=== PATIENT | female | born 1985 | race Hispanic/Latino ===

== ENCOUNTER 2018-04-16 17:20 | Emergency (ER) | payer OTHER, SELFPAY ==
[2018-04-16 17:56] LABS: Urine Blood 3+ (NEG); Urine Glucose NEGATIVE (NEG); Urine Protein NEGATIVE (NEG)
[2018-04-16 18:20] LABS: Absolute Lymphocytes (CBC) 2.3 K/uL (0.7-4.9); Absolute Monocytes 0.6 K/uL (0.1-1.3); Absolute Neutrophil 8.1 K/uL (1.8-8.0); Basophils % 0.4 % (0-1.3); Eosinophils % 1.4 % (0-4.4); Hematocrit 40.7 % (36.0-45.0); Lymphocytes % 20.7 % (15.3-44.8); MPV 10.2 fL (7.6-11.3); RBC Red Blood Cell Count 4.36 M/uL (3.86-4.86)
[2018-04-16 18:59] LABS: BUN Blood Urea Nitrogen 6 mg/dL (7-18); Bicarbonate 24 mmol/L (21-32); Glucose Level 91 mg/dL (74-106); HCG, Quantitative 169207 mIU/mL (1-3); Potassium 3.6 mmol/L (3.5-5.1); Sodium Level 139 mmol/L (136-145)
--- NOTE | 2018-04-16 19:47 | EDPHYS ---
Physician Documentation [facility] Name: Maria C Wallace Age: 33 yrs Sex: Female : 1985 Arrival Date: 04/16/2018 Time: 17:24 Bed 18 Private MD: ED Physician Jose Alejandro Romeo HPI: 04/16 19:44 This 33 yrs old Female presents to ER via Ambulatory with complaints of jr8 Vaginal Bleeding, + Preg <12wks. 19:44 The patient presents to the emergency department with vaginal bleeding, that is light. jr8 The estimated gestational age is 11 weeks. course: care: private OB physician. Previous pregnancies: in previous pregnancies patient has had vaginal delivery, no complications. Associated signs and symptoms: The patient has no apparent associated signs or symptoms. The patient has not experienced similar symptoms in the past. The patient has not recently seen a physician. 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 - Social history:: Smoking status: Patient/guardian denies using tobacco. - Ebola Screening: : Patient negative for fever greater than or equal to 101.5 degrees Fahrenheit, and additional compatible Ebola Virus Disease symptoms Patient denies exposure to infectious person Patient denies travel to an Ebola-affected area in the 21 days before illness onset No symptoms or risks identified at this time. ROS: 19:44 Eyes: Negative for injury, pain, redness, and discharge, ENT: Negative for injury, jr8 pain, and discharge, Neck: Negative for injury, pain, and swelling, Cardiovascular: Negative for chest pain, palpitations, and edema, Respiratory: Negative for shortness of breath, cough, wheezing, and pleuritic chest pain, Abdomen/GI: Negative for abdominal pain, nausea, vomiting, diarrhea, and constipation, Back: Negative for injury and pain, MS/Extremity: Negative for injury and deformity, Skin: Negative for injury, rash, and discoloration, Neuro: Negative for headache, weakness, numbness, tingling, and seizure. 19:44 : Positive for vaginal bleeding. Exam: 19:44 Eyes: Pupils equal round and reactive to light, extra-ocular motions intact. Lids and jr8 lashes normal. Conjunctiva and sclera are non-icteric and not injected. Cornea within normal limits. Periorbital areas with no swelling, redness, or edema. ENT: Nares patent. No nasal discharge, no septal abnormalities noted. Tympanic membranes are normal and external auditory canals are clear. Oropharynx with no redness, swelling, or masses, exudates, or evidence of obstruction, uvula midline. Mucous membranes moist. Neck: Trachea midline, no thyromegaly or masses palpated, and no cervical lymphadenopathy. Supple, full range of motion without nuchal rigidity, or vertebral point tenderness. No Meningismus. Cardiovascular: Regular rate and rhythm with a normal S1 and S2. No gallops, murmurs, or rubs. Normal PMI, no JVD. No pulse deficits. Respiratory: Lungs have equal breath sounds bilaterally, clear to auscultation and percussion. No rales, rhonchi or wheezes noted. No increased work of breathing, no retractions or nasal flaring. Abdomen/GI: Soft, non-tender, with normal bowel sounds. No distension or tympany. No guarding or rebound. No evidence of tenderness throughout. Back: No spinal tenderness. No costovertebral tenderness. Full range of motion. Skin: Warm, dry with normal turgor. Normal color with no rashes, no lesions, and no evidence of cellulitis. MS/ Extremity: Pulses equal, no cyanosis. Neurovascular intact. Full, normal range of motion. Neuro: Awake and alert, GCS 15, oriented to person, place, time, and situation. Cranial nerves II-XII grossly intact. Motor strength 5/5 in all extremities. Sensory grossly intact. Cerebellar exam normal. Normal gait. Vital Signs: 17:30 BP 125 / 80; Pulse 84; Resp 20; Temp 98.7; Pulse Ox 100% on R/A; Weight 68.04 kg; aj Height 5 ft. 0 in. (152.40 cm); 18:20 BP 124 / 73; Pulse 72; Resp 16; Pulse Ox 100% on R/A; Pain 0/10; em 19:21 BP 124 / 70; Pulse 71; Resp 17 S; Pulse Ox 100% on R/A; jd3 17:30 Body Mass Index 29.29 (68.04 kg, 152.40 cm) aj MDM: 17:50 Patient medically screened. [facility] 19:44 Data reviewed: vital signs, nurses notes, lab test result(s), radiologic studies, [facility] ultrasound, and as a result, I will discharge patient. Data interpreted: Pulse oximetry: on room air is 100 %. Interpretation: normal. Counseling: I had a detailed discussion with the patient and/or guardian regarding: the historical points, exam findings, and any diagnostic results supporting the discharge/admit diagnosis, lab results, radiology results, the need for outpatient follow up, an OB/Gyne specialist, to return to the emergency department if symptoms worsen or persist or if there are any questions or concerns that arise at home. 04/16 17:50 Order name: Quantitative Hcg [facility] 04/16 17:50 Order name: Abo/rh Typing [facility] 04/16 17:50 Order name: Basic Metabolic Panel [facility] 04/16 17:50 Order name: CBC with Diff [facility] 04/16 17:53 Order name: Urine Dipstick--Ancillary (enter results) nc 04/16 17:53 Order name: Urine --Ancillary (enter results) nc 04/16 17:50 Order name: Urine Test (obtain specimen); Complete Time: 18:15 [facility] 04/16 17:50 Order name: US Transvaginal Ob [facility] 04/16 17:57 Order name: Urine --Ancillary; Complete Time: 18:23 [facility] 04/16 17:57 Order name: Urine Dipstick-Ancillary; Complete Time: 18:23 [facility] 04/16 18:49 Order name: ABO/RH typing; Complete Time: 19:35 [facility] 04/16 18:53 Order name: CBC with Automated Diff; Complete Time: 19:35 [facility] 04/16 18:59 Order name: Basic Metabolic Panel; Complete Time: 19:35 [facility] 04/16 18:59 Order name: HCG, Quantitative; Complete Time: 19:35 [facility] 04/16 17:50 Order name: IV Saline Lock; Complete Time: 18:15 [facility] 04/16 17:50 Order name: Labs collected and sent; Complete Time: 18:15 jr8 04/16 17:50 Order name: NPO; Complete Time: 18:15 jr8 04/16 17:50 Order name: Urine Dipstick-Ancillary (obtain specimen); Complete Time: 18:15 Administered Medications: No medications were administered Point of Care Testing: Urine : 19:59 hCG Reading: Positive; jd3 Disposition: 04/16/18 19:46 Discharged to Home. Impression: Threatened . - Condition is Stable. - Discharge Instructions: Threatened Miscarriage, Vaginal Bleeding During , First Trimester, Vaginal Bleeding During , Second Trimester, Pelvic Rest. - Medication Reconciliation Form, Thank You Letter, Antibiotic Education, Prescription Opioid Use form. - Follow up: Private Physician; When: 2 - 3 days; Reason: Recheck today's complaints, Continuance of care, Re-evaluation by your physician. - Problem is new. - Symptoms have improved. Addendum: 04/18/2018 03:39 Co-signature as Attending Physician, Jose Alejandro Romeo MD I agree with the assessment and t w4 plan of care. Signatures: Dispatcher [employer] EDMS Nanci Stallings RN RN aj Roszak, Josh, PA PA jr8 Alexandre Tom RN RN jd3 Wadley, Terrence, MD MD tw4 Corrections: (The following items were deleted from the chart) 04/16 19:59 19:46 04/16/2018 19:46 Discharged to Home. Impression: Threatened . Condition jd3 is Stable. Forms are Medication Reconciliation Form, Thank You Letter, Antibiotic Education, Prescription Opioid Use. Follow up: Private Physician; When: 2 - 3 days; Reason: Recheck today's complaints, Continuance of care, Re-evaluation by your physician. Problem is new. Symptoms have improved. jr8
--- NOTE | 2018-04-16 19:47 | ER ---
Nurse's Notes [facility] Name: Maria C Wallace Age: 33 yrs Sex: Female : 1985 Arrival Date: 04/16/2018 Time: 17:24 Bed 18 Private MD: Diagnosis: Threatened Presentation: 04/16 17:28 Presenting complaint: Patient states: Vaginal bleeding for [address] Canas and aj put on pelvic rest on . Transition of care: patient was not received from another setting of care. Onset of symptoms was April 09, 2018. Risk Assessment: Do you want to hurt yourself or someone else? Patient reports no desire to harm self or others. Initial Sepsis Screen: Does the patient meet any 2 criteria? No. Patient's initial sepsis screen is negative. Does the patient have a suspected source of infection? No. Patient's initial sepsis screen is negative. Care prior to arrival: None. 17:28 Method Of Arrival: Ambulatory aj 17:28 Acuity: LIGIA 3 aj Triage Assessment: 17:30 General: Appears in no apparent distress. comfortable, Behavior is calm, cooperative, aj appropriate for age. Pain: Denies pain. Neuro: Level of Consciousness is awake, alert, obeys commands, Oriented to person, place, time, situation, Appropriate for age. Respiratory: Airway is patent Respiratory effort is even, unlabored, Respiratory pattern is regular, symmetrical. : Reports vaginal bleeding that is light flow. Derm: Skin is intact, is healthy with good turgor, Skin is pink, warm \T\ dry. normal. 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 - Social history:: Smoking status: Patient/guardian denies using tobacco. - Ebola Screening: : Patient negative for fever greater than or equal to 101.5 degrees Fahrenheit, and additional compatible Ebola Virus Disease symptoms Patient denies exposure to infectious person Patient denies travel to an Ebola-affected area in the 21 days before illness onset No symptoms or risks identified at this time. Screenin:45 Abuse screen: Denies threats or abuse. Nutritional screening: No deficits noted. em Tuberculosis screening: No symptoms or risk factors identified. Fall Risk None identified. Assessment: 17:45 General: Appears in no apparent distress. comfortable, Behavior is calm, cooperative, em Denies fever. Pain: Denies pain. Neuro: Level of Consciousness is awake, alert, obeys commands, Oriented to person, place, time, situation. Cardiovascular: Patient's skin is warm and dry. Respiratory: Airway is patent Respiratory effort is even, unlabored, Respiratory pattern is regular, symmetrical. GI: Abdomen is flat, Reports nausea, Patient currently denies cramping, vomiting. : Urine is clear, Reports vaginal bleeding that is with clots, moderate flow, since Tuesday. Derm: Skin is intact, Skin is pink, warm \T\ dry. Musculoskeletal: Range of motion: intact in all extremities. 17:45 Reassessment: I agree with assessment completed by Russell Sr LVN . aa5 19:21 Reassessment: Patient appears in no apparent distress at this time. No changes from jd3 previously documented assessment. Patient and/or family updated on plan of care and expected duration. Pain level reassessed. Patient is alert, oriented x 3, equal unlabored respirations, skin warm/dry/pink. 19:59 Obstetrical Assessment: General assessment: awake and alert, skin warm and dry, jd3 respirations even and unlabored. Vital Signs: 17:30 BP 125 / 80; Pulse 84; Resp 20; Temp 98.7; Pulse Ox 100% on R/A; Weight 68.04 kg; aj Height 5 ft. 0 in. (152.40 cm); 18:20 BP 124 / 73; Pulse 72; Resp 16; Pulse Ox 100% on R/A; Pain 0/10; em 19:21 BP 124 / 70; Pulse 71; Resp 17 S; Pulse Ox 100% on R/A; jd3 17:30 Body Mass Index 29.29 (68.04 kg, 152.40 cm) aj Vitals: 19:58 Heart Tones no order for heart tones. jd3 ED Course: 17:24 Patient arrived in ED. mr 17:30 Triage completed. aj 17:30 Arm band placed on right wrist. Patient placed in an exam room. aj 17:45 Patient has correct armband on for positive identification. Placed in gown. Bed in low em position. Call light in reach. Side rails up X2. Adult w/ patient. Pulse ox on. NIBP on. 17:50 Kyle Franks PA is PHCP. jr8 17:50 Jose Alejandro Romeo MD is Attending Physician. jr8 17:50 Urine collected: clean catch specimen, clear. em 18:00 Russell Sr LVN is Primary Nurse. em 18:11 Initial lab(s) drawn, by me, sent to lab. Inserted saline lock: 22 gauge in right em antecubital area, using aseptic technique. Blood collected. 18:36 Radiology exam delayed due to test not completed at this time. hcg. sg3 19:26 Ultrasound completed. Patient tolerated well. Notified COTTON EXPERT/EVANGELIST britton. sg3 19:30 Primary Nurse role handed off by Russell Sr LVN jd3 19:30 Alexandre Tom RN is Primary Nurse. jd3 19:58 No provider procedures requiring assistance completed. IV discontinued, intact, jd3 bleeding controlled, No redness/swelling at site. Pressure dressing applied. Administered Medications: No medications were administered Point of Care Testing: Urine : 19:59 hCG Reading: Positive; jd3 Outcome: 19:46 Discharge ordered by . jr8 19:58 Discharged to home ambulatory, with family. jd3 19:58 Condition: stable 19:58 Discharge instructions given to patient, family, Instructed on discharge instructions, follow up and referral plans. Demonstrated understanding of instructions, follow-up care. 19:59 Patient left the ED. jd3 Signatures: Nanci Stallings RN RN aj Igor Farida mr SrRussell LVN LVN em Lena Melgar RN Kyle Mustafa PA PA jr8 Davies, Jonathon, RN RN jd3 Godinez, Sarah sg3
[2018-04-16 20:07] VITALS: TEMP 98.7; O2SAT 100
[2018-04-16 20:10] VITALS: BP 124/70
--- NOTE | 2018-04-16 20:24 | RAD REPORT ---
EXAM DESCRIPTION: US - Transvaginal OB - 04/16/2018 7:25 pm CLINICAL HISTORY: , vaginal bleeding Preliminary findings provided at the time of the study. COMPARISON: None. FINDINGS: Single intrauterine gestation identified. Gestational sac is normal in configuration. Yolk sac is seen. pole is identified. Heart rate is 168-171 BPM. A 3 x 2 x 1.6 centimeter subchorio mary hemorrhage is present along the inferior margin of the gestational sac. A 3.2 centimeter thin-wal led anechoic right ovarian cyst is identified. A 4.8 centimeter left ovarian cyst is identified also thin walled and anechoic. Doppler evaluation shows normal blood flow within the ovarian stroma. [place] -rump length corresponds to 11 weeks 3 day age. Calculated TAMMY is 11/02/2018. IMPRESSION: Single 11 week 3 day IUP with due date of 11/02/2018. Heart rate is normal. No gross anatomic finding at this early age. Approximately 3 cm subchorionic hemorrhage along the inferior aspect of the gestational sac.
== END 2018-04-16 19:59 | disposition home or self-care (01) ==
LOC: ER 17:20
DX: O20.0 Threatened abortion (principal); Z3A.11 11 weeks gestation of pregnancy
CPT/HCPCS: 36415; 76817; 80048; 81003; 81025; 84702; 85025; 86900; 86901

== ENCOUNTER 2018-10-25 00:35 | Inpatient (IN) | payer OTHER ==
[2018-10-25] MEDS ORDERED: Ringers Lactate 1,000 ML IV PRN (04:46)
[2018-10-25] MEDS ORDERED: NA CIT/CITRIC AC 30 ML ORAL UDC PO ONE (04:53)
[2018-10-25] MEDS ORDERED: Ringers Lactate 1,000 ML IV SCH (05:00)
[2018-10-25 05:17] LABS: Urine Appearance CLEAR; Urine Bilirubin NEGATIVE (NEG); Urine Blood NEGATIVE (NEG); Urine Color YELLOW; Urine Glucose NEGATIVE (NEG); Urine Protein NEGATIVE (NEG); Urine Urobilinogen 0.2 mg/dL (0.2-1.0); Urine pH 7.5 (5.0-7.0)
[2018-10-25 05:18] LABS: Urine Microscopic Reflex ORDER UMIC
[2018-10-25] MEDS ORDERED: METOCLOPRAMIDE 10 MG/2mL INJ IV ONE (05:30)
[2018-10-25] MEDS ORDERED: FAMOTIDINE 20 MG/2 ML VIAL IV ONE (05:30)
[2018-10-25 05:31] LABS: Urine Bacteria 20-50 /HPF (<20); Urine Culture Reflex Order REFLEXED; Urine RBC <5 /HPF (NONE SEEN)
[2018-10-25 05:42] LABS: Absolute Lymphocytes (CBC) 1.4 K/uL (0.7-4.9); Basophils % 0.2 % (0-1.3); Hematocrit 41.1 % (36.0-45.0); Lymphocytes % 14.8 % (15.3-44.8); MPV 11.6 fL (7.6-11.3); RBC Red Blood Cell Count 4.27 M/uL (3.86-4.86)
[2018-10-25] MEDS ORDERED: CEFAZOLIN 2 GM in NA CHLORIDE 0.9% 100 ML IVPB SCH (06:00)
[2018-10-25 06:28] VITALS: BMI 38.0
[2018-10-25] MEDS ORDERED: MORPHINE SULFATE/PF 1 MG/ML (10 ML AMP) ONE (07:16)
[2018-10-25] MEDS ORDERED: OXYTOCIN 10 UNIT/ML ML IV ONE ×3 (07:17→08:25)
[2018-10-25 07:35] LABS: Blood Morphology Comment NOT SEEN (NOT SEEN); Platelet Estimate ADEQ
[2018-10-25] MEDS ORDERED: EPHEDRINE SULF 50 MG/ML VIAL ONE (08:03)
--- NOTE | 2018-10-25 08:18 | PREOPHP ---
Date of Admission: 10/25/2018 History Of Present Illness: A 32-year-old 3, para 2, 2 previous C-sections, for repeat dee nelda section. Infection, blood loss, anesthetic complications, injury to bladder, bowel, ureter, post operative complications, clots in legs, and pneumonia discussed. Patient knows fully well this does not constitute all the possible problems that could occur during or following surgery and knows that with each surgery the risk of complications is higher. Patient had a cyst on her left ovary earlier in the . We will see if that is still is there or not. Family History: Basically showing hypertension in one of the grandparents and diabetes in another gr andparent, but otherwise clear. Allergies: SHE HAS NO ALLERGIES. Medications: She has been taking vitamins prior to admission. Social History: Does not smoke. Physical Examination: HEENT: Clear. Pupils equal, round, reactive to light and accommodation. Conjunctivae well perfused . No oral, lingual, or buccal lesions. Chest and Lungs: Clear. Heart: Without murmurs, thrills, heaves, or rubs. Breasts: Without masses on previous visit. ABDOMEN: Term size. Baby is vertex. EXTREMITIES: Clear without edema, cyanosis, or clubbing. Plan: We will proceed with repeat section tomorrow morning. She knows not to eat or drink after midnight. Her niece will be there with her. The niece speaks Thai quite well. SUE/SHANICE Voice ID: [id number]
[2018-10-25] MEDS ORDERED: Oxycodone HCl/Acetaminophen 1 TAB TAB PO PRN (08:31)
[2018-10-25] MEDS ORDERED: BISACODYL 10 MG RECTAL SUPP RECT PRN (08:31)
[2018-10-25] MEDS ORDERED: IBUPROFEN 200 MG TAB PO PRN (08:31)
[2018-10-25] MEDS ORDERED: DIPHENHYDRAMINE 25 MG TAB/CAP PO PRN (08:31)
[2018-10-25] MEDS ORDERED: ONDANSETRON 4 MG/2 ML VIAL IV PRN (08:31)
[2018-10-25] MEDS ORDERED: ONDANSETRON 4 MG (ODT) TAB PO PRN (08:31)
[2018-10-25] MEDS ORDERED: ACETAMINOPHEN 500 MG TAB PO PRN ×2 (08:31)
[2018-10-25] MEDS ORDERED: CEFAZOLIN/SWI 1gm 1 GM/10 ML SYR IV SCH (09:00)
[2018-10-25] MEDS ORDERED: D5LR 1,000 ML with OXYTOCIN 20 UNIT IV SCH ×2 (09:00)
[2018-10-25] MEDS ORDERED: OXYTOCIN/LR 20 UNIT/1,000 ML BAG IV SCH (09:00)
[2018-10-25] MEDS: KETOROLAC 30 MG/ML INJ IV PRN ×2 (13:30→22:30)
[2018-10-25] MEDS ORDERED: CEFAZOLIN/SWI 2gm 2 GM/20 ML SYR IVP SCH (15:15)
[2018-10-25 19:49] LABS: RPR (Rapid Plasma Reagin) NON-REACT (NON-REACT)
--- NOTE | 2018-10-25 19:53 | OP ---
Surgeon: Philippe Canas MD Anesthesiologist: Dr. Randolph. Indications: A 33-year-old, 3, para 2, previous C-sections, for a repeat section. Also known to have a left ovarian cyst. Full preoperative counseling concerning procedure including infection; blood loss; anesthetic complications; injury to bladder, bowel, or ureter; postoperative c omplications; clots in legs; and pneumonia. Patient knows fully well this does not constitute all th e problems that could occur during or following surgery and knows that with each surgery the risk of complications is higher. 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 Description Of Procedure: After spinal block anesthesia was performed, patient was prepped and drape d and a time-out was performed. She had been given 2 g of Ancef prophylactically. A Pfannenstiel in cision was created over the previous incision site. The incision was carried to fascia. There was n oted to be heavy eschar tissue, very thick from previous cesareans. Anterior fascial plane as well a s posterior fascial plane were both developed with blunt and sharp dissection. Underlying rectus mus roma was . A peritoneal defect was encountered and entered. Noted to have scar tissue on th e right lower segment of the uterus from peritoneal adhesions. This was removed. Inspection of the left ovary showed a cyst that was drained of mucus-looking material and a biopsy was performed, melba riley tied on the base of the biopsy specimen and sent to Pathology. The cervical os was dilated with ri ng clamp after the baby had been delivered, a 7-pound 1-ounce female. Vacuum suction needed to get t he baby out, but easy delivery. Apgars 9 and 9. Placenta removed manually. Uterus cleared of clot and blood and exteriorized. Uterus closed with a running locked stitch of 1 chromic followed by 5 fi [id number] stitches in the left angle for complete hemostasis. At this time, small irritated area s on the front part of the uterus from the peritoneal attachments were fulgurated. Gutters cleared o f clot and blood. Uterus was replaced in the peritoneal cavity. Inspection of suture line showed no further bleeding. Muscle was closed with 0 Vicryl interrupted sutures. Fascia closed with 1 Vicryl running locked stitch from either angle to the midline. Subcutaneous tissue closed with 2-0 plain, then absorbable jacqueline, and then metal jacqueline. Patient tolerated all procedures well, transferred back to the recovery room -- her room in good condition. Final Diagnoses: Term intrauterine , repeat section; significant anterior scarring ; left ovarian cyst, drained and biopsy obtained. Estimated Blood Loss: 900 cc. SUE/SHANICE Voice ID: [id number] Report ID: [id number]
[2018-10-25] MEDS ORDERED: Ringers Lactate 1,000 ML IV ONE ×2 (20:08→23:25)
[2018-10-26] MEDS: Oxycodone HCl/Acetaminophen 1 TAB TAB PO PRN ×4 (01:16→20:20)
[2018-10-26] MEDS ORDERED: MAGNESIUM HYDROXIDE 8% 30 ML PO PRN (08:31)
--- NOTE | 2018-10-26 12:00 | PN ---
Postoperatively, is doing quite well. H and H with minimal change. Vital signs all stable. Urine w as slightly bloody after the , but now is clearing. I do not have any suspicion that the bl adder has been injured in any way as the incision was well above the bladder during the entire surger y and repair process. We will discontinue the Hays and IV, begin ambulation. Patient knows that I am leaving town and Dr. Diego will see her tomorrow and dismiss her. She is given instructions to re port back to me in next week for staple removal, to report any temperature elevation of 100 degrees o r greater, severe pain, heavy bleeding, or any other type of abnormalities when she is home. She has had her Tdap immunization. She has no post spinal block problems. Doing well. We will dictate dis missal summary after patient has been of course dismissed, but doing well at this point. SUE/SHANICE Voice ID: [id number] Report ID: [id number]
[2018-10-26 21:36] LABS: Absolute Lymphocytes (CBC) 0.9 K/uL (0.7-4.9); Basophils % 0.3 % (0-1.3); Hematocrit 39.1 % (36.0-45.0); Lymphocytes % 7.8 % (15.3-44.8); MPV 10.5 fL (7.6-11.3); RBC Red Blood Cell Count 4.04 M/uL (3.86-4.86)
[2018-10-26 21:56] LABS: Albumin 2.6 g/dL (3.4-5.0); Bilirubin Total 0.3 mg/dL (0.2-1.0); Potassium 4.3 mmol/L (3.5-5.1); Protein, Total 5.9 g/dL (6.4-8.2)
[2018-10-26 22:55] LABS: Urine Appearance CLOUDY; Urine Bilirubin NEGATIVE (NEG); Urine Blood 3+ (NEG); Urine Color OTHER; Urine Glucose NEGATIVE (NEG); Urine Protein 2+ (NEG); Urine Specific Gravity <=1.005 (1.005-1.030); Urine Urobilinogen 0.2 mg/dL (0.2-1.0); Urine pH 7.5 (5.0-7.0)
[2018-10-26 23:11] LABS: Urine Bacteria <20 /HPF (<20); Urine Culture Reflex Order REFLEXED; Urine RBC TNTC /HPF (NONE SEEN)
[2018-10-27] MEDS: Oxycodone HCl/Acetaminophen 1 TAB TAB PO PRN (03:29)
[2018-10-27 06:53] LABS: Basophils % 0.3 % (0-1.3); Hematocrit 37.2 % (36.0-45.0); Lymphocytes % 7.8 % (15.3-44.8); MPV 11.4 fL (7.6-11.3); RBC Red Blood Cell Count 3.88 M/uL (3.86-4.86)
[2018-10-27 07:06] LABS: Albumin 2.2 g/dL (3.4-5.0); Bilirubin Total 0.3 mg/dL (0.2-1.0); Protein, Total 5.9 g/dL (6.4-8.2)
[2018-10-27 09:17] LABS: Blood Morphology Comment NOT SEEN (NOT SEEN); Platelet Estimate ADEQ
--- NOTE | 2018-10-27 09:41 | RAD REPORT ---
EXAM DESCRIPTION: CT - Abdomen Pelvis W Contrast - 10/27/2018 6:57 am CLINICAL HISTORY: Abdominal pain/unable to void COMPARISON: none. TECHNIQUE: Computed axial tomography of the abdomen pelvis was obtained. 100 cc Isovue-300 was admin istered intravenously. Oral contrast was not requested which limits evaluation of bowel. All CT scans are performed using dose optimization technique as appropriate and may include automated exposure control or mA/KV adjustment according to patient size. FINDINGS: Small right pleural effusion with bibasilar atelectasis The liver, spleen, pancreas, adren al and right kidney appear unremarkable. Small nonobstructing left renal calculi Patient is status post . Hays catheter is present within the bladder. Small amount of extraluminal air lies adjacent to the a nterior aspect of the bladder. Small amount of ascites abuts the anterior aspect of the bladder. Smal l amount of ascites is present along the pericolic gutters and is adjacent to the liver and spleen. IMPRESSION: These findings likely indicate an intraperitoneal bladder perforation
--- NOTE | 2018-10-27 09:49 | RAD REPORT ---
EXAM DESCRIPTION: CT - Pelvis W/Cont - 10/27/2018 9:27 am CLINICAL HISTORY: Abdominal pain. Unable to avoid COMPARISON: October 27, 2018 cat scan TECHNIQUE: Computed axial tomography of the pelvis was obtained. Isovue 300 administered into the bl adder via a Hays catheter All CT scans are performed using dose optimization technique as appropriate and may include automated exposure control or mA/KV adjustment according to patient size. FINDINGS: Patient is status Caesarean section. A Hays catheter is present within the bladder. Contrast was administered into the bladder via the ca theter. A tear of the anterior aspect of the bladder just to the left of midline measures 18 millimet ers. The contrast flows into the paracolic gutters, left greater than right. IMPRESSION: Intraperitoneal bladder perforation. The examination was discussed with Dr. Diego
[2018-10-27] MEDS ORDERED: CEFAZOLIN/SWI 2gm 2 GM/20 ML SYR ONE (10:19)
[2018-10-27] MEDS ORDERED: CEFAZOLIN/SWI 2gm 2 GM/20 ML SYR IV SCH (10:35)
[2018-10-27] MEDS ORDERED: METHYLENE BLUE 0.5% 10 ML AMP ONE (10:53)
[2018-10-27] MEDS ORDERED: PROPOFOL 200 MG/20 ML VIAL IV ONE (11:08)
[2018-10-27] MEDS ORDERED: MIDAZOLAM HCL 2 MG/2 ML INJ ONE (11:08)
[2018-10-27] MEDS ORDERED: FENTANYL CITR 100 MCG/2 ML ONE (11:08)
[2018-10-27] MEDS ORDERED: LIDOCAINE 2% MPF 5 ML VIAL ONE (11:09)
[2018-10-27] MEDS ORDERED: ONDANSETRON 4 MG/2 ML VIAL ONE (11:09)
[2018-10-27] MEDS ORDERED: ROCURONIUM 50 MG/5 ML VIAL IV ONE (11:10)
--- NOTE | 2018-10-27 11:22 | P.PN ---
Date of Service: 10/27/18 Patient is a 33 y/o s/p repeat section on 10/25/18 and is post op day 2. Once the patient's bauer catheter was removed she has been having increasing difficulty voiding. A straight cath was performed 4 hours after the bauer was removed yesterday since the patient did not void. 400cc of pink colored urine was removed. Catheter was not replaced. Later in the evening patient was in pain and abdomen was distended and so the bauer catheter was replaced. At this time abour 2 liters of clear urine was in the bauer bag. Patient was then observed with the bauer catheter in place. It was then again removed at 4am to allow the patient to trial void. The patient began to have increasing pain. Labs were repeated at this time. Bauer was replaced. Only 150cc of clear urine was in the bag. Selected Entries 10/27/18 04:00 Temperature 98.0 F Pulse Rate 64 Respiratory 18 Rate Blood Pressure 118/68 Laboratory Tests 10/26/18 10/26/18 10/27/18 21:20 21:20 06:13 WBC 11.9 H D 12.5 H Hgb 12.8 12.7 Hct 39.1 37.2 Plt Count 124 L 135 L Sodium 139 Potassium 4.3 Chloride 107 BUN 14 Creatinine 1.47 H Estimated GFR 41 L 10/27/18 06:13 WBC Hgb Hct Plt Count Sodium 140 Potassium 4.0 Chloride 109 H BUN 12 Creatinine 1.20 Estimated GFR 52 L GEN: patient in bed in tearful distress Head/Neck: NCAT, supple Resp: symmetric breathing, some shallow breaths ABD: distended, no rebound, guarding is present, bowel sounds decreased in all quadrants. At this time decision was made to order a CT Abd/Pelvis and a retrograde pyelogram. This was done urgently. Once it was performed I received a phone call from Radiologist, Dr Brown, who informed me that there was an 18 mm defect. I then notified the family and the patient that she would need to have surgery for bladder repair. Dr. Saul was contacted to help assist. 2 grams of ancef were given to the patient.
[2018-10-27] MEDS ORDERED: Ringers Lactate 1,000 ML IV ONE ×3 (11:40→22:07)
[2018-10-27] MEDS ORDERED: Phenylephrine HCl 10 MG/ML 1 ML VIAL ONE (12:22)
[2018-10-27] MEDS ORDERED: GLYCOPYRROLATE 0.2 MG/ML SYR ONE ×3 (12:56→12:57)
--- NOTE | 2018-10-27 13:09 | P.OP ---
Drive Thru Order Taker: Sotero Saul Preoperative diagnosis: Bladder perforation Postoperative diagnosis: same Primary procedure: exploratory laparotomy, repair of bladder Anesthesia: General; Dr. Randolph Estimated blood loss: none Specimen: none Findings: large bladder perforation Operative Technique: Patient was taken to the operating room and placed in supine position. Abdominal incision jacqueline were removed and the abdomen was prepped with bedatine. A new sterile bauer catheter was placed and clamped with a Margi clamp. Patient was then drapped in sterile fashion. Attention was then turned to the incision which was openned with a scalpel. Absorbable sutures were removed and discarded. The fascia was then . The rectus muscles were then . Upon entry into the abdominal cavity the bladder was immediately identified and noted to be completely open at he dome of the bladder. The edges of the bladder were held with Jesusita clamps. The edges of the bladder mucsa were reapproximated with 3.0 chromic suture. This was then reinforced with a 2.0 chromic suture. The bladder was then filled with normal saline mixed with methylene blue. A very small area and the midline of the incision was noted to have some methylene blue leaking from it and so this was suture ligated. Fluid was then drained from the bladder. Bladder was then replaced down into the pelvis. Urine was then suctioned out from the gutters bilaterally. The patient was then placed in reverse trendelenburg to make sure all of the fluid in the abdominal cavity had been drained. Table was then straightened back to flat. The rectus muscles were then reapproximated. The fascia was then reapproximated with an 0 vicryl. Subcutaneous tissue was brought together with interrupted sutures of 2.0 plain gut. The skin was reapproximated with a 3.0 vicryl on a Jone needle. Drain(s): Urinary catheter Transferred to: Recovery Room Condition: Good
[2018-10-27] MEDS ORDERED: Ringers Lactate 2,000 ML IV ONE (13:29)
[2018-10-27] MEDS: MEPERIDINE HCL 25 MG/0.5 ML ONE ×2 (13:35→13:47)
[2018-10-27] MEDS: HYDROMORPHONE HCL 1 MG/ML INJ ONE ×2 (13:40→13:45)
[2018-10-27 13:49] VITALS: O2SAT 96
[2018-10-27 18:27] LABS: Absolute Lymphocytes (CBC) 0.8 K/uL (0.7-4.9); Basophils % 0.4 % (0-1.3); Hematocrit 36.5 % (36.0-45.0); MPV 10.6 fL (7.6-11.3); RBC Red Blood Cell Count 3.82 M/uL (3.86-4.86)
[2018-10-27 18:38] LABS: ALT/SGPT 15 U/L (12-78); AST/SGOT 16 U/L (15-37); Alkaline Phosphatase 102 U/L (45-117); BUN Blood Urea Nitrogen 6 mg/dL (7-18); Bicarbonate 25 mmol/L (21-32); Bilirubin Total 0.3 mg/dL (0.2-1.0); Glucose Level 95 mg/dL (74-106); Potassium 3.9 mmol/L (3.5-5.1); Protein, Total 5.5 g/dL (6.4-8.2); Sodium Level 144 mmol/L (136-145)
[2018-10-27 20:35] LABS: HBsAG Nonreactive (Nonreactive)
[2018-10-28] MEDS ORDERED: Ringers Lactate 1,000 ML IV ONE (06:11)
[2018-10-28] MEDS ORDERED: NITROFURAN MACRO 100 MG CAP PO ONE (11:57)
--- NOTE | 2018-10-28 13:54 | P.PN ---
Date of Service: 10/28/18 Patient is a 33 y/o s/p repeat section on 10/25/18 and is post op day 3 from section and post op day 1 from return to OR for exploratory laparotomy and repair of bladder perforation. Patient is doing much better today. Her pain is minimal. She is tolerating a regular diet and is ambulating well. H[place] is in place and draining clear urine. Selected Entries 10/28/18 07:34 Temperature 98.3 F Pulse Rate 92 H Respiratory 18 Rate Blood Pressure 113/54 L Laboratory Tests 10/27/18 10/27/18 10/27/18 06:13 06:13 18:06 WBC 12.5 H 11.5 H Hgb 12.7 12.1 Hct 37.2 36.5 Plt Count 135 L 147 L BUN 12 Creatinine 1.20 Estimated GFR 52 L 10/27/18 18:06 WBC Hgb Hct Plt Count BUN 6 L Creatinine 0.50 L Estimated GFR > 90 GEN: patient in bed resting comfortably Head/Neck: NCAT, supple Resp: symmetric non-labored breathing, ABD: soft, no rebound, no guarding, bowel sounds present in all quadrants; incision - dressing in place. Patient is doing well today. Encouraged patient to ambulate. Will be placed on daily macrobid 100mg.
[2018-10-29 06:36] LABS: ALT/SGPT 26 U/L (12-78); AST/SGOT 24 U/L (15-37); Albumin 1.9 g/dL (3.4-5.0); Alkaline Phosphatase 88 U/L (45-117); BUN Blood Urea Nitrogen 7 mg/dL (7-18); Bicarbonate 28 mmol/L (21-32); Bilirubin Total 0.2 mg/dL (0.2-1.0); Glucose Level 83 mg/dL (74-106); Potassium 3.8 mmol/L (3.5-5.1); Protein, Total 5.3 g/dL (6.4-8.2); Sodium Level 143 mmol/L (136-145)
[2018-10-29 06:37] LABS: Absolute Lymphocytes (CBC) 1.2 K/uL (0.7-4.9); Basophils % 0.4 % (0-1.3); Hematocrit 33.8 % (36.0-45.0); Lymphocytes % 13.3 % (15.3-44.8); MPV 10.5 fL (7.6-11.3); RBC Red Blood Cell Count 3.53 M/uL (3.86-4.86)
[2018-10-29] MEDS ORDERED: NITROFURAN MACRO 100 MG CAP PO SCH (08:00)
[2018-10-29 11:11] VITALS: BP 108/65; TEMP 97.2
== END 2018-10-29 15:15 | disposition home or self-care (01) | DRG 787 ==
LOC: 2ND-WC 04:15
PROVIDERS: ADMIT Specialist; ATTEND Specialist
PROC: 10D00Z1 Extraction of Products of Conception, Low, Open Approach (ICD-10-PCS; principal; 2018-10-25)
PROC: 0UB10ZX Excision of Left Ovary, Open Approach, Diagnostic (ICD-10-PCS; 2018-10-25)
PROC: 0TQB0ZZ Repair Bladder, Open Approach (ICD-10-PCS; 2018-10-27)
DX: O34.211 Maternal care for low transverse scar from previous cesarean delivery (principal); O71.5 Other obstetric injury to pelvic organs; Z3A.39 39 weeks gestation of pregnancy; Z37.0 Single live birth; O99.89 Other specified diseases and conditions complicating pregnancy, childbirth and the puerperium; N73.6 Female pelvic peritoneal adhesions (postinfective); O34.83 Maternal care for other abnormalities of pelvic organs, third trimester; N83.202 Unspecified ovarian cyst, left side
CPT/HCPCS: 36415; 72193; 74177; 80053; 81001; 81003; 81015; 85014; 85025; 86592; 86900; 86901; 87086; 87088; 87340; 88305; J0690; J1170; J2175; J2250; J2370; J2405; J2590; J2704; J2765; J3010; Q9967